=== PATIENT | male | born 1930 | race Caucasian/White ===

== ENCOUNTER 2017-03-21 13:35 | Inpatient (IN) | payer MEDICARE, OTHER ==
[~2017-03-21] VITALS: Ht 175.3 cm; Wt 81.0 kg
[2017-03-21 14:37] LABS: BASOPHIL 0.2 % (0-2); EOSINOPHIL 1.1 % (0-7); HCT 44.9 % (42.0-52.0); HGB 14.9 g/dl (13.2-18.0); MCH 31.8 pg (25.0-31.0); MCHC 33.2 g/dL (32.0-36.0); MCV 95.9 fL (78.0-100.0); MONOCYTE 9.8 % (0-12); MPV 10.4 fL (6.0-9.5); NEUTROPHIL 74.9 % (41-80); PLT 245 K/uL (150-400); RBC 4.68 M/uL (4.70-6.00); RDW 13.2 % (11.5-14.0); WBC 8.8 K/uL (4.0-10.5)
[2017-03-21 14:53] LABS: ALBUMIN 3.3 g/dL (3.4-4.8); BILIRUBIN - TOTAL 0.6 mg/dL (0.1-1.0); CREATININE 0.7 mg/dL (0.7-1.2); GLOBULIN (CALCULATION) 3.6 g/dL (2.2-4.2); POTASSIUM 4.2 mmol/L (3.5-5.1); TOTAL PROTEIN 6.9 g/dL (6.4-8.3)
[2017-03-21 14:58] LABS: CKMB 2.86 ng/mL (0.97-4.94); TROPONIN T < 0.010 ng/mL
[2017-03-21 15:01] LABS: PRO-BNP 1818 pg/mL (0-450)
[2017-03-21 22:55] LABS: CKMB 2.77 ng/mL (0.97-4.94); TROPONIN T < 0.010 ng/mL
[2017-03-22 03:01] LABS: HGB 14.1 g/dl (13.2-18.0); MCH 32.5 pg (25.0-31.0); MCHC 33.6 g/dL (32.0-36.0); MCV 96.8 fL (78.0-100.0); MPV 10.1 fL (6.0-9.5); RBC 4.34 M/uL (4.70-6.00); RDW 13.1 % (11.5-14.0); WBC 7.9 K/uL (4.0-10.5)
[2017-03-22 03:20] LABS: CKMB 2.26 ng/mL (0.97-4.94); TROPONIN T < 0.010 ng/mL
[2017-03-22 03:22] LABS: CREATININE 0.8 mg/dL (0.7-1.2); MAGNESIUM 1.87 mg/dL (1.40-2.10); POTASSIUM 3.8 mmol/L (3.5-5.1)
[2017-03-22 14:36] LABS: MAGNESIUM 1.88 mg/dL (1.40-2.10)
[2017-03-23 02:28] LABS: MAGNESIUM 1.87 mg/dL (1.40-2.10); POTASSIUM 3.9 mmol/L (3.5-5.1)
[2017-03-23 06:27] LABS: CREATININE 0.8 mg/dL (0.7-1.2); POTASSIUM 4.1 mmol/L (3.5-5.1)
[2017-03-25 06:41] LABS: CREATININE 0.8 mg/dL (0.7-1.2); POTASSIUM 4.2 mmol/L (3.5-5.1)
[2017-03-26 05:50] LABS: HCT 43.4 % (42.0-52.0); HGB 14.2 g/dl (13.2-18.0); MCH 31.1 pg (25.0-31.0); MCHC 32.7 g/dL (32.0-36.0); MCV 95.2 fL (78.0-100.0); MPV 10.3 fL (6.0-9.5); RBC 4.56 M/uL (4.70-6.00); RDW 13.2 % (11.5-14.0); WBC 8.1 K/uL (4.0-10.5)
[2017-03-26 06:09] LABS: CREATININE 0.8 mg/dL (0.7-1.2); POTASSIUM 4.3 mmol/L (3.5-5.1)
[2017-03-26] MEDS ORDERED: LASIX40 MG PO (13:12)
[2017-03-26] MEDS ORDERED: ASPIRIN CHEWABL81 MG PO (13:12)
[2017-03-26] MEDS ORDERED: CERTAGEN1 EACH PO (13:12)
[2017-03-26] MEDS ORDERED: KEFLEX250 MG PO (13:12)
[2017-03-26] MEDS ORDERED: ZESTRIL5 MG PO (13:13)
[2017-03-26] MEDS ORDERED: COREG 3.125M3.125 MG PO (13:13)
== END 2017-03-26 15:30 | disposition home or self-care (01) | DRG 602 ==
LOC: FER 13:35 → FTCU 15:30
PROVIDERS: Emergency Medicine; Internal Medicine Cardiovascular Disease; ADMIT Internal Medicine
DX: L03.116 Cellulitis of left lower limb (principal); I50.21 Acute systolic (congestive) heart failure; I48.91 Unspecified atrial fibrillation; R31.9 Hematuria, unspecified; L03.115 Cellulitis of right lower limb; H35.30 Unspecified macular degeneration; Z95.0 Presence of cardiac pacemaker; Z79.82 Long term (current) use of aspirin
CPT/HCPCS: 36415; 36600; 71020; 80048; 80053; 80202; 82550; 82553; 82607; 82803; 83735; 83880; 84132; 84443; 84484; 85025; 85651; 86140; 87070; 87077; 87186; 87205; 93005; 93922; 93970; J1940; J3260; J3370